=== PATIENT | male | born 1945 | race Hispanic/Latino ===

== ENCOUNTER → 2019-04-20 | Outpatient (CLI) | payer OTHER ==
[~2019-04-20] MED LIST: GABA-529 PO; ISOS30TA6 PO; METF-446 PO; METO100T14 PO; ROSU40TA21 PO; VALS320T16 PO
== END | disposition home or self-care (01) ==
LOC: RAH 08:45
PROVIDERS: ATTEND Internal Medicine Gastroenterology
DX: K76.0 Fatty (change of) liver, not elsewhere classified (principal); R11.2 Nausea with vomiting, unspecified; R63.4 Abnormal weight loss
CPT/HCPCS: 76700